=== PATIENT | male | born 1995 | race Caucasian/White ===

== ENCOUNTER 2017-03-14 08:04 | Emergency (ER) | payer BC ==
--- NOTE | ~2017-03-14 | ER ---
PATIENT'S NAME: DENIZ TAPIA [facility] AGE: 21 Y [address] ROOM: [place] [address] LOCATION: [facility] ADMIT DATE: 03/14/2017 ER/Outpatient Report DISCHARGE DATE: 03/14/2017 FAMILY PHYSICIAN: , Unknown ATTENDING PHYSICIAN: Rosalind Cardenas Time of Arrival: 0804 hours. Time of Evaluation: 0823 hours. IDENTIFICATION: A 21-year-old male. CHIEF COMPLAINT: Dizziness. HISTORY OF PRESENT ILLNESS: The patient has been dizzy since 1 a.m. and can not sleep. He has a slight headache. He has a nonproductive cough. He felt chilled. No fever. No sore throat. He had nausea and vomiting last evening. He did do quite a bit of drinking over the weekend. The dizziness, he is not really able to explain if it is a vertigo or lightheadedness. No ill contacts. No recent colds, although he states he has had a nonproductive cough. ALLERGIES: NO KNOWN DRUG ALLERGIES. CURRENT MEDICATIONS: No current medications. MEDICAL PROBLEMS: No medical problems other than anxiety, which he is currently not taking any medication for. He did have a hospitalization for anxiety in [place], and he has been on Adderall in the past. SOCIAL HISTORY: The patient lives in [place]. Tobacco, use denies. Alcohol use, occasional. He did drink heavily over this weekend. Drug use, denies. REVIEW OF SYSTEMS: All systems reviewed and negative other than what is noted in the HPI. FAMILY HISTORY: No pertinent family history. PHYSICAL EXAMINATION: PATIENT'S NAME: DENIZ TAPIA [facility] AGE: 21 Y [address] ROOM: [place], [place] [address] LOCATION: [facility] ADMIT DATE: 03/14/2017 ER/Outpatient Report DISCHARGE DATE: 03/14/2017 FAMILY PHYSICIAN: , Unknown ATTENDING PHYSICIAN: Rosalind Cardenas VITAL SIGNS: Height 5 feet 10 inches, weight 71.1 kg, blood pressure 154/83, pulse 97, respirations 16, temperature 98.3, and saturations 99% on room air. GENERAL: A 21-year-old male, in no acute distress. HEENT: Head: Normocephalic, atraumatic. Ears: TMs translucent both ears. Nose: Mucosa pink, no lesions. Mouth: No lesions. Pharynx benign. NECK: Supple. No lymphadenopathy. LUNGS: Clear to auscultation. HEART: Regular rate and rhythm. ABDOMEN: Soft, nondistended, nontender. SKIN: [place], warm, and dry. No lesions or rashes noted. NEURO: No focal deficit. The patient does have some slight horizontal nystagmus. EMERGENCY DEPARTMENT COURSE: He was given 1 L of fluids. His vital signs remained stable. He felt much improved. Head CT negative. Xanax 0.25 mg p.o. given. LABORATORY DATA AND X-RAYS: Chemistry panel unremarkable. Alcohol level less than 0.010. CBC is normal, and sedimentation rate is normal. IMPRESSION: 1. Dizziness. 2. Anxiety. PLAN: Rest and fluids. No alcohol. Slow cautious movements. Meclizine 12.5 mg 1 p.o. q.8 hours p.r.n. dizziness, dispensed 10 with 0 refills. Side effects discussed. Follow up with his physician of choice in 1 to 2 days. Follow up sooner if any problems or concerns. The patient understands and agrees, and all questions have been answered. ROSALIND CARDENAS MD CAR/modl /[id number] d: 03/14/17 2237 t: 03/15/17 0629, OUTPATIENT REPORT
[2017-03-14 09:07] LABS: BASOPHIL # 0.1 K/uL (0.0-0.2); BASOPHIL % 0.5 %; EOSINOPHIL % 0.4 %; HEMATOCRIT 44.6 % (37.0-53.0); HEMOGLOBIN 16.3 g/dL (12.0-17.0); IMMATURE GRANULOCYTE % 0.3 %; LYMPHOCYTE # 1.1 K/uL (0.8-4.0); LYMPHOCYTE % 12.2 %; MCH 32.3 pg (27.0-34.0); MCHC 36.5 gm/dL (32.0-36.5); MCV 88.3 fl (83.0-98.0); MONOCYTE # 0.9 K/uL (0.0-1.0); MONOCYTE % 9.8 %; MPV 10.2 fl (9.4-12.4); NEUTROPHIL # (ANC) 7.1 K/uL (1.4-9.0); NEUTROPHIL % 76.8 %; NRBC % 0 /100WBC (0-0.00); PLATELET COUNT 229 K/uL (150-450); RBC 5.05 M/uL (4.00-6.00); RDW-CV 12.4 % (11.9-14.6); WBC 9.3 K/uL (4.0-11.0)
[2017-03-14 09:54] LABS: ALK PHOS 71 IU/L (33-138); ALT 26 IU/L (12-78); ANION GAP 11.7 (10.0-19.0); AST 24 IU/L (10-40); BLOOD UREA NITROGEN 10 mg/dL (6-24); CALCIUM 8.5 mg/dL (8.5-10.5); CHLORIDE 109 mMol/L (96-110); CO2 24 mMol/L (22-32); CREATININE 0.9 mg/dL (0.6-1.3); ESTIMATED GFR (MDRD EQUATION) > 60; POTASSIUM 3.7 mMol/L (3.7-5.1); SODIUM 141 mMol/L (135-145); TOTAL BILIRUBIN 1.1 mg/dL (0.0-1.5); TOTAL PROTEIN 6.9 g/dL (6.0-8.4)
== END 2017-03-14 10:42 | disposition disaster alternative care site (69) ==
LOC: GMED 08:04
PROVIDERS: Family Medicine
DX: R42 Dizziness and giddiness (principal); F41.9 Anxiety disorder, unspecified
CPT/HCPCS: G0480; J7030